=== PATIENT | male | born 1985 | race African-American/Black ===

== ENCOUNTER 2021-01-13 10:23 | Emergency (ER) | payer OTHER | END 2021-01-13 13:00 | disposition home or self-care (01) | LOC: FER 10:23 | DX: G43.909 Migraine, unspecified, not intractable, without status migrainosus (principal); F17.200 Nicotine dependence, unspecified, uncomplicated; Z79.899 Other long term (current) drug therapy; Z88.6 Allergy status to analgesic agent | CPT/HCPCS: J0780; J1200; J1885; J2405; J7030 ==